=== PATIENT | female | born 1965 | race African-American/Black ===

== ENCOUNTER 2016-07-22 13:53 | Emergency (ER) | payer OTHER ==
[~2016-07-22] VITALS: Ht 177.8 cm; Wt 112.5 kg
[2016-07-22 13:55] VITALS: BP 131/71
[2016-07-22 15:30] LABS: BASOPHIL % 0.8 % (0-2); PLATELET COUNT 285 x10^3mcL (130-400); RED CELL DISTRIBUTION WIDTH 13.6 % (11.5-14.5)
[2016-07-22 15:36] LABS: CALCIUM 9.1 mg/dL (8.5-10.1); CARBON DIOXIDE 28.3 mmol/L (21-32); CHLORIDE SERUM 104 mmol/L (98-107); GFR1 > 60 mL/min; GLUCOSE SERUM 109 mg/dL (74-106); POTASSIUM SERUM 4.7 mmol/L (3.5-5.1); SODIUM SERUM 139 mmol/L (136-145)
[2016-07-22 15:40] LABS: ALBUMIN 3.6 g/dL (3.4-5.0); ALKALINE PHOSPHATASE 66 U/L (46-116); ALT/SGPT 29 U/L (14-59); AMYLASE 87 U/L (25-115); AST/SGOT 26 U/L (15-37); BILIRUBIN TOTAL 0.9 mg/dL (0.20-1.00); LIPASE 114 IU/L (73-393); TOTAL PROTEIN, SERUM 7.6 g/dL (6.4-8.2)
== END 2016-07-22 17:55 | disposition home or self-care (01) ==
LOC: ED 13:53
PROVIDERS: Specialist
DX: R10.13 Epigastric pain (principal); R11.2 Nausea with vomiting, unspecified; E66.9 Obesity, unspecified; K57.90 Diverticulosis of intestine, part unspecified, without perforation or abscess without bleeding
CPT/HCPCS: 83880; Q0092

== ENCOUNTER 2016-09-02 11:39 | Emergency (ER) | payer OTHER ==
[~2016-09-02] VITALS: Ht 175.3 cm; Wt 115.7 kg
[2016-09-02 12:43] VITALS: BP 113/87
== END 2016-09-02 12:43 | disposition home or self-care (01) ==
LOC: ED 11:39
DX: S86.912A Strain of unspecified muscle(s) and tendon(s) at lower leg level, left leg, initial encounter (principal); K57.90 Diverticulosis of intestine, part unspecified, without perforation or abscess without bleeding; X50.1XXA Overexertion from prolonged static or awkward postures, initial encounter; X50.9XXA Other and unspecified overexertion or strenuous movements or postures, initial encounter; Y93.89 Activity, other specified; Y99.8 Other external cause status; Y92.89 Other specified places as the place of occurrence of the external cause
CPT/HCPCS: J1885

== ENCOUNTER 2016-12-31 18:59 | Emergency (ER) | payer OTHER ==
[~2016-12-31] VITALS: Ht 177.8 cm; Wt 111.8 kg
[2016-12-31 19:45] LABS: BASOPHIL % 0.9 % (0-2); PLATELET COUNT 272 x10^3mcL (130-400)
[2016-12-31 19:54] LABS: CALCIUM 8.6 mg/dL (8.5-10.1); CARBON DIOXIDE 27.3 mmol/L (21-32); CHLORIDE SERUM 104 mmol/L (98-107); CREATININE SERUM 0.9 mg/dL (0.6-1.0); GFR1 > 60 mL/min; GLUCOSE SERUM 90 mg/dL (74-106); POTASSIUM SERUM 3.7 mmol/L (3.5-5.1); SODIUM SERUM 138 mmol/L (136-145)
[2016-12-31 19:58] LABS: ALKALINE PHOSPHATASE 94 U/L (46-116); ALT/SGPT 49 U/L (14-59); AST/SGOT 34 U/L (15-37); BILIRUBIN TOTAL 0.6 mg/dL (0.20-1.00); TOTAL PROTEIN, SERUM 7.6 g/dL (6.4-8.2)
[2016-12-31 20:01] LABS: ALBUMIN 2.8 g/dL (3.4-5.0)
[2016-12-31 21:26] VITALS: BP 128/74
== END 2016-12-31 21:26 | disposition home or self-care (01) ==
LOC: ED 18:59
PROVIDERS: Emergency Medicine
DX: J45.909 Unspecified asthma, uncomplicated (principal); J06.9 Acute upper respiratory infection, unspecified
CPT/HCPCS: 36415; 83880; J1885; Q0092

== ENCOUNTER 2017-01-08 15:59 | Emergency (ER) | payer OTHER ==
[~2017-01-08] VITALS: Ht 175.3 cm; Wt 110.2 kg
[2017-01-08 17:37] LABS: PLATELET COUNT 343 x10^3mcL (130-400); RED CELL DISTRIBUTION WIDTH 14.1 % (11.5-14.5)
[2017-01-08 18:03] LABS: CALCIUM 8.8 mg/dL (8.5-10.1); CARBON DIOXIDE 24.9 mmol/L (21-32); CHLORIDE SERUM 105 mmol/L (98-107); CREATININE SERUM 0.8 mg/dL (0.6-1.0); GFR1 > 60 mL/min; GLUCOSE SERUM 92 mg/dL (74-106); POTASSIUM SERUM 3.4 mmol/L (3.5-5.1); SODIUM SERUM 140 mmol/L (136-145)
[2017-01-08 18:07] LABS: ALKALINE PHOSPHATASE 79 U/L (46-116); ALT/SGPT 21 U/L (14-59); AST/SGOT 24 U/L (15-37); BILIRUBIN TOTAL 0.67 mg/dL (0.20-1.00)
[2017-01-08 18:13] LABS: MONOCYTE 9 % (0-7); SEGMENTED NEUTROPHILS 62 % (37-75)
[2017-01-08 18:14] LABS: ATYPICAL LYMPH 3 %; BAND NEUTROPHIL 2 % (0-10); rbc morphology (normal/abnorm) ABNORMAL (NORMAL)
[2017-01-08 18:15] LABS: target cell (codocyte) 1+; tear drop cell (dacryocyte) 1+
[2017-01-08 18:20] LABS: ALBUMIN 2.7 g/dL (3.4-5.0)
[2017-01-08 23:00] VITALS: BP 132/86
== END 2017-01-08 23:00 | disposition home or self-care (01) ==
LOC: ED 15:59
PROVIDERS: Emergency Medicine
DX: R07.9 Chest pain, unspecified (principal); R05 Cough; R09.89 Other specified symptoms and signs involving the circulatory and respiratory systems
CPT/HCPCS: 83880; 85378; J1885; J7030; Q9967

== ENCOUNTER 2017-03-14 02:57 | Inpatient (IN) | payer OTHER ==
[~2017-03-14] VITALS: Ht 175.3 cm; Wt 96.3 kg
[2017-03-14 03:21] VITALS: Ht 175.3 cm; Wt 96.3 kg
[2017-03-14 05:00] LABS: UA SPECIFIC GRAVITY >=1.030 (1.005-1.035); microscopic required? YES; urine erythrocyte 2+ (NEGATIVE)
[2017-03-14 05:14] LABS: AMPHETAMINE QUAL UR NONE DETECTED (NEG <=1000)
[2017-03-14 05:15] LABS: BASOPHIL % 0.3 % (0-2); PLATELET COUNT 223 x10^3mcL (130-400)
[2017-03-14 05:16] LABS: RED CELL DISTRIBUTION WIDTH 15.7 % (11.5-14.5)
[2017-03-14 05:19] LABS: ALKALINE PHOSPHATASE 66 U/L (46-116); ALT/SGPT 20 U/L (14-59); AST/SGOT 29 U/L (15-37); BILIRUBIN TOTAL 0.54 mg/dL (0.20-1.00); CALCIUM 8.2 mg/dL (8.5-10.1); CARBON DIOXIDE 24.7 mmol/L (21-32); CHLORIDE SERUM 105 mmol/L (98-107); CREATININE SERUM 0.7 mg/dL (0.6-1.0); GFR1 > 60 mL/min; GLUCOSE SERUM 116 mg/dL (74-106); SODIUM SERUM 139 mmol/L (136-145); TOTAL PROTEIN, SERUM 7.2 g/dL (6.4-8.2)
[2017-03-14 05:24] LABS: ALBUMIN 2.5 g/dL (3.4-5.0)
[2017-03-14 05:25] LABS: POTASSIUM SERUM 2.9 mmol/L (3.5-5.1)
[2017-03-14] MEDS ORDERED: FLUOXETINE HCL20 M2 PO (08:55)
[2017-03-14] MEDS ORDERED: IBUPROFEN400 MG (09:28)
[2017-03-14] MEDS ORDERED: AMITRIPTYLINE H25 MG PO (10:10)
[2017-03-14] MEDS ORDERED: OMEPRAZOLE20 M4 PO (10:11)
[2017-03-14] MEDS ORDERED: VENTOLIN H0.09 MG/A1 INH (10:11)
[2017-03-14] MEDS ORDERED: APAP/HYDROCODON1 T15 PO (10:14)
[2017-03-14 13:03] VITALS: BP 116/64
[2017-03-14 15:29] LABS: MAGNESIUM 1.7 mg/dL (1.8-2.4)
[2017-03-14 15:36] LABS: CHOLESTEROL/HDL RATIO 5.6; T3 TOTAL 0.92 ng/mL
[2017-03-14 15:38] LABS: FREE T4 1.2 ng/dL (0.76-1.46); FREE THYROXINE INDEX 2.1 ug/dL (1.4-4.5); T4(THYROXINE) 5.7 ug/dL (4.7-13.3)
[2017-03-14 16:34] VITALS: BP 97/61
[2017-03-14 20:44] VITALS: BP 101/60
[2017-03-15 05:45] VITALS: BP 103/66
[2017-03-15 06:31] LABS: BASOPHIL % 0.3 % (0-2); PLATELET COUNT 253 x10^3mcL (130-400)
[2017-03-15 07:07] LABS: CALCIUM 7.9 mg/dL (8.5-10.1); CARBON DIOXIDE 25.5 mmol/L (21-32); CHLORIDE SERUM 108 mmol/L (98-107); CREATININE SERUM 0.8 mg/dL (0.6-1.0); GFR1 > 60 mL/min; GLUCOSE SERUM 94 mg/dL (74-106); MAGNESIUM 2.3 mg/dL (1.8-2.4); PHOSPHOROUS 3.2 mg/dL (2.5-4.9); POTASSIUM SERUM 4.1 mmol/L (3.5-5.1); SODIUM SERUM 141 mmol/L (136-145)
[2017-03-15 09:10] VITALS: BP 105/63
[2017-03-15 14:00] VITALS: BP 102/62
[2017-03-15 18:54] VITALS: BP 84/56
[2017-03-15 21:32] VITALS: BP 94/52
[2017-03-16 06:08] VITALS: BP 90/48
[2017-03-16 07:04] LABS: BASOPHIL % 0.2 % (0-2); PLATELET COUNT 225 x10^3mcL (130-400)
[2017-03-16 07:18] LABS: RED CELL DISTRIBUTION WIDTH 16.4 % (11.5-14.5)
[2017-03-16 07:20] LABS: CALCIUM 7.7 mg/dL (8.5-10.1); CARBON DIOXIDE 22.8 mmol/L (21-32); CHLORIDE SERUM 106 mmol/L (98-107); CREATININE SERUM 0.8 mg/dL (0.6-1.0); GFR1 > 60 mL/min; GLUCOSE SERUM 132 mg/dL (74-106); MAGNESIUM 2.1 mg/dL (1.8-2.4); PHOSPHOROUS 3.8 mg/dL (2.5-4.9); POTASSIUM SERUM 4.3 mmol/L (3.5-5.1); SODIUM SERUM 137 mmol/L (136-145)
[2017-03-16 09:32] VITALS: BP 90/48
[2017-03-16 13:05] VITALS: BP 91/50
[2017-03-16 16:43] LABS: RED BLOOD CELLS 3.7 M/mm3 (4.10-5.10)
[2017-03-16 16:46] LABS: IRON 44 ug/dL (50-170)
[2017-03-16 16:51] LABS: TOTAL IRON BINDING CAPACITY 140 ug/dL (250-450)
[2017-03-16 17:05] VITALS: BP 101/62
[2017-03-16 21:26] VITALS: BP 96/64
[2017-03-17 06:44] VITALS: BP 95/63
[2017-03-17 07:22] LABS: PLATELET COUNT 248 x10^3mcL (130-400)
[2017-03-17 07:28] LABS: BASOPHIL % 0 % (0-2); RED CELL DISTRIBUTION WIDTH 16.1 % (11.5-14.5)
[2017-03-17 07:32] LABS: CALCIUM 8.1 mg/dL (8.5-10.1); CARBON DIOXIDE 21.1 mmol/L (21-32); CHLORIDE SERUM 106 mmol/L (98-107); CREATININE SERUM 0.6 mg/dL (0.6-1.0); GFR1 > 60 mL/min; GLUCOSE SERUM 129 mg/dL (74-106); PHOSPHOROUS 3.6 mg/dL (2.5-4.9); SODIUM SERUM 137 mmol/L (136-145)
[2017-03-17 10:06] VITALS: BP 94/65
[2017-03-17 13:47] VITALS: BP 94/58
[2017-03-17 15:45] VITALS: BP 96/59
[2017-03-17 18:06] VITALS: BP 95/62
[2017-03-17 21:07] VITALS: BP 94/61
[2017-03-18 05:28] VITALS: BP 95/62
[2017-03-18 06:40] LABS: BASOPHIL % 0.4 % (0-2); PLATELET COUNT 255 x10^3mcL (130-400)
[2017-03-18 07:05] LABS: RED CELL DISTRIBUTION WIDTH 16.8 % (11.5-14.5)
[2017-03-18 08:58] VITALS: BP 95/55
[2017-03-18 13:54] VITALS: BP 97/62
[2017-03-18 18:00] VITALS: BP 107/65
[2017-03-18 21:15] VITALS: BP 101/62
[2017-03-19] VITALS (7 sets, daily range): BP systolic 95–116; BP diastolic 57–75
[2017-03-19 06:26] LABS: PLATELET COUNT 251 x10^3mcL (130-400)
[2017-03-19 06:48] LABS: BASOPHIL % 0 % (0-2); RED CELL DISTRIBUTION WIDTH 16.4 % (11.5-14.5)
[2017-03-19] MEDS ORDERED: LEVOFLOXACIN750 M1 PO (15:43)
[2017-03-19] MEDS ORDERED: CLINDAMYCIN HC300 MG PO (15:44)
[2017-03-19] MEDS ORDERED: LAC PO (15:45)
[2017-03-19] MEDS ORDERED: VITC PO (15:46)
[2017-03-19] MEDS ORDERED: FER300 PO (15:46)
[2017-03-19] MEDS ORDERED: PREDNISONE20 MG PO (15:56)
== END 2017-03-19 19:10 | disposition home or self-care (01) | DRG 137 ==
LOC: ED 02:57 → DU 07:31
PROVIDERS: Emergency Medicine; Family Medicine; Student in an Organized Health Care Education/Training Program
DX: J69.0 Pneumonitis due to inhalation of food and vomit (principal); J96.00 Acute respiratory failure, unspecified whether with hypoxia or hypercapnia; E43 Unspecified severe protein-calorie malnutrition; M79.7 Fibromyalgia; N39.0 Urinary tract infection, site not specified; R31.9 Hematuria, unspecified; D64.9 Anemia, unspecified; E87.6 Hypokalemia; F32.9 Major depressive disorder, single episode, unspecified; E83.51 Hypocalcemia; Z68.33 Body mass index [BMI] 33.0-33.9, adult; E83.42 Hypomagnesemia; E66.9 Obesity, unspecified; J84.10 Pulmonary fibrosis, unspecified
CPT/HCPCS: 83880; 84439; 87804; 94150; J0456; J1956; J2543; J2920; J3370; J3475; J3480; J3490; J7030; J7040; J7050; J7613; J7620; J7644; Q0092; Q9967

== ENCOUNTER 2017-06-20 16:35 | Emergency (ER) | payer OTHER ==
[~2017-06-20] VITALS: Ht 177.8 cm; Wt 102.0 kg
[~2017-06-20 16:35] MED LIST: AMITRIPTYLINE H25 MG PO; APAP/HYDROCODON1 T15 PO; CLINDAMYCIN HC300 MG PO; FER300 PO; FLUOXETINE HCL20 M2 PO; IBUPROFEN400 MG; LAC PO; LEVOFLOXACIN750 M1 PO; OMEPRAZOLE20 M4 PO; PREDNISONE20 MG PO; VENTOLIN H0.09 MG/A1 INH; VITC PO
[2017-06-20 16:44] VITALS: Ht 177.8 cm; Wt 102.0 kg
[2017-06-20 19:38] VITALS: BP 110/71
== END 2017-06-20 19:38 | disposition home or self-care (01) ==
LOC: ED 16:35
DX: S83.92XA Sprain of unspecified site of left knee, initial encounter (principal); S83.91XA Sprain of unspecified site of right knee, initial encounter; S43.402A Unspecified sprain of left shoulder joint, initial encounter; M54.2 Cervicalgia; M79.7 Fibromyalgia; V43.52XA Car driver injured in collision with other type car in traffic accident, initial encounter; Y93.I9 Activity, other involving external motion; Y92.89 Other specified places as the place of occurrence of the external cause; Y99.8 Other external cause status